=== PATIENT | male | born 1960 | race American Indian/Alaskan Native ===

== ENCOUNTER 2017-03-28 12:31 | Emergency (ER) | payer BC ==
[2017-03-28 12:32] VITALS: BMI 23.8
[2017-03-28 12:42] VITALS: TEMP 97.5
--- NOTE | 2017-03-28 14:31 | C.PDOC ---
History Of Present Illness 57 y/o male otherwise well presented to the ED months after falling off a ladder , c/o pain to left side. Pain to shoulder, radiating into hand, dull, intermittent. pain to hip, radiating down his leg. No head ache, no neck pain. No weakness, no numbness, no slurred speech. Time Seen by Provider: 03/28/17 13:09 Chief Complaint (Nursing): Lower Extremity Problem/Injury Past Medical History Vital Signs: Last Vital Signs Temp 97.5 F L 03/28/17 12:42 Pulse 65 03/28/17 14:43 Resp 16 03/28/17 14:43 BP 123/72 03/28/17 14:43 Pulse Ox 100 03/28/17 14:43 - Medical History PMH: Denies: Depression, Chronic Kidney Disease - [facility] Procedures COLONOSCOPY (09/21/13) INJECT/INFUSE NEC (09/04/13) Family History: States: No Known Family Hx - Social History Hx Tobacco Use: No Hx Alcohol Use: No Hx Substance Use: No - Immunization History Hx Tetanus Toxoid Vaccination: Yes Hx Influenza Vaccination: Yes Hx Pneumococcal Vaccination: No Review Of Systems Constitutional: Negative for: Fever, Chills Cardiovascular: Negative for: Chest Pain, Palpitations Gastrointestinal: Negative for: Nausea, Vomiting, Abdominal Pain Neurological: Negative for: Weakness, Numbness, Confusion, Altered Mental Status , Headache, Dizziness Physical Exam - Physical Exam Appears: Well, Non-toxic Skin: Normal Color, Warm Head: Atraumatic Eye(s): bilateral: Normal Inspection Neck: Supple Extremity: Bilateral: Atraumatic Neurological/Psych: Oriented x3 Extremity: Right: No Drift, Left: No Drift, Upper: No Drift, Lower: No Drift ED Course And Treatment O2 Sat by Pulse Oximetry: 97 Disposition Counseled Patient/Family Regarding: Diagnosis, Need For Followup, Rx Given - Disposition Referrals: [facility] at [facility] [Outside] Disposition: HOME/ ROUTINE Disposition Time: 14:28 Condition: STABLE Prescriptions: diaZEpam [Valium] 5 mg PO TID #12 tab Ibuprofen [Motrin] 600 mg PO TID #15 tab Instructions: RICE Therapy (ED) Forms: [facility] (Kiswahili), General Discharge Instructions - POA Present On Arrival: None - Clinical Impression Clinical Impression: Joint pain
[2017-03-28 14:45] VITALS: BP 123/72; PULSE 65; RESP 16
[2017-04-20 14:27] VITALS: O2SAT 97
== END 2017-03-28 14:44 | disposition home or self-care (01) ==
LOC: C.ER 12:31
DX: M25.512 Pain in left shoulder (principal)

== ENCOUNTER 2017-05-07 04:46 | Emergency (ER) | payer BC ==
[2017-05-07 04:47] VITALS: BMI 23.8
--- NOTE | 2017-05-07 05:05 | C.PDOC ---
History Of Present Illness 57yo male, presents to ED with complaints of left shoulder pain for the past month. Patient states 1 month ago, he fell on his left side and since then he has had pain intermittently. States his pain worsens with movement, specifically when putting his arm above his head. Patient states he has not followed up with his PMD or orthopedist regarding this. Of note, patient states he works in construction. Denies any numbness, weakness, chest pain, or SOB. Patient requesting XR. Time Seen by Provider: 05/07/17 04:57 Chief Complaint (Nursing): Upper Extremity Problem/Injury History Per: Patient History/Exam Limitations: no limitations Onset/Duration Of Symptoms: Persistent Current Symptoms Are (Timing): Still Present Quality: "Pain" Exacerbating Factor(s): Movement Past Medical History Reviewed: Historical Data, Nursing Documentation, Vital Signs Vital Signs: Last Vital Signs Temp 98 F 05/07/17 05:47 Pulse 72 05/07/17 05:47 Resp 18 05/07/17 05:47 BP 123/73 05/07/17 05:47 Pulse Ox 98 05/07/17 05:47 - Medical History PMH: No Chronic Diseases Denies: Depression, Chronic Kidney Disease - [facility] Procedures COLONOSCOPY (09/21/13) INJECT/INFUSE NEC (09/04/13) Family History: States: Unknown Family Hx - Social History Hx Tobacco Use: No Hx Alcohol Use: No Hx Substance Use: No - Immunization History Hx Tetanus Toxoid Vaccination: Yes Hx Influenza Vaccination: Yes Hx Pneumococcal Vaccination: No Review Of Systems Except As Marked, All Systems Reviewed And Found Negative. Musculoskeletal: Positive for: Shoulder Pain (left) Neurological: Negative for: Weakness, Numbness Physical Exam - Physical Exam Appears: Well, Non-toxic, No Acute Distress Skin: Normal Color, Warm Head: Atraumatic, Normacephalic Eye(s): bilateral: Normal Inspection, EOMI Nose: Normal Oral Mucosa: Moist Neck: Normal ROM, Supple Chest: Symmetrical Cardiovascular: Rhythm Regular Respiratory: Normal Breath Sounds, No Accessory Muscle Use Extremity: Normal ROM (FROM with pain aggravated past 120 degrees), Tenderness ( point tenderness to left anterior shoulder), Capillary Refill (<2 sec), No Deformity, No Swelling Pulses: Left Radial: Normal, Right Radial: Normal Neurological/Psych: Oriented x3, Normal Speech, Normal Cognition, Normal Motor, Normal Sensation ED Course And Treatment O2 Sat by Pulse Oximetry: 96 (RA) Pulse Ox Interpretation: Normal - Other Rad Shoulder XR X-Ray: Interpreted by Me, Viewed By Me Interpretation: NAD Progress Note: Patient given Toradol IM. PT instructed to follow up with orthopedist in 1-2 days. Disposition - Disposition Referrals: Taurus Bishop MD [Staff Provider] - Disposition: HOME/ ROUTINE Disposition Time: 05:38 Condition: STABLE Additional Instructions: Follow up with bone doctor in 1-2 days. 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 - Scribe Statement The provider has reviewed the documentation as recorded by the Cory Bernard Provider Attestation: All medical record entries made by the Cory were at my direction and personally dictated by me. I have reviewed the chart and agree that the record accurately reflects my personal performance of the history, physical exam, medical decision making, and the department course for this patient. I have also personally directed, reviewed, and agree with the discharge instructions and disposition.
[2017-05-07 05:49] VITALS: BP 123/73; PULSE 72; RESP 18; TEMP 98
[2017-05-07 05:55] VITALS: O2SAT 96
--- NOTE | 2017-05-07 07:39 | RAD ---
Left shoulder three views History: Pain. Comparison: None available. Findings: Moderate narrowing of the left glenohumeral joint space. Mild narrowing of the left acromioclavicular joint space. No evidence for acute displaced fracture or dislocation. Subchondral cyst formation within the proximal humerus. Impression: Degenerative changes. If pain persists, consider MRI
== END 2017-05-07 05:51 | disposition home or self-care (01) ==
LOC: C.ER 04:46
DX: M25.512 Pain in left shoulder (principal)
CPT/HCPCS: 73030; 96372; 99284; J1885

== ENCOUNTER 2017-05-22 17:26 | Emergency (ER) | payer BC ==
[2017-05-22 17:26] VITALS: BMI 23.8
[2017-05-22 17:41] VITALS: BP 116/79; PULSE 68; RESP 18; TEMP 98.7; O2SAT 99
[2017-05-22] MEDS ORDERED: Apap-Butalbital-Caffeine 325-50-40mg Tab PO STA (17:55)
[2017-05-22] MEDS ORDERED: Apap-Butalbital-Caffeine 325-50-40mg Tab ONE (18:04)
--- NOTE | 2017-05-22 18:19 | C.PDOC ---
History Of Present Illness 57 year old male presents to the ER with a complaint of an intermittent, throbbing, right sided headache for the past 2 days, associated with photophobia. Patient states the pain feels like a migraine and has had similar headaches in the past. He took 600mg of ibuprofen with mild relief but headache recurs. Denies vision change, nausea, vomiting, dizziness, weakness, or numbness. Time Seen by Provider: 05/22/17 17:49 Chief Complaint (Nursing): Headache History Per: Patient History/Exam Limitations: no limitations Onset/Duration Of Symptoms: Days Current Symptoms Are (Timing): Still Present Preceeding Symptoms: None Associated Symptoms: Photophobia. denies: Blurred Vision, Nausea, Vomiting, Extremity Weakness Recent travel outside of the [place]: No Past Medical History Reviewed: Historical Data, Nursing Documentation, Vital Signs Vital Signs: Last Vital Signs Temp 98.7 F 05/22/17 17:39 Pulse 68 05/22/17 17:39 Resp 18 05/22/17 17:39 BP 116/79 05/22/17 17:39 Pulse Ox 99 05/22/17 18:19 - Medical History PMH: No Chronic Diseases - [facility] Procedures COLONOSCOPY (09/21/13) INJECT/INFUSE NEC (09/04/13) Family History: States: Unknown Family Hx - Social History Hx Tobacco Use: No Hx Alcohol Use: No Hx Substance Use: No - Immunization History Hx Tetanus Toxoid Vaccination: Yes Hx Influenza Vaccination: Yes Hx Pneumococcal Vaccination: No Review Of Systems Constitutional: Negative for: Fever, Chills Eyes: Negative for: Vision Change Gastrointestinal: Negative for: Nausea, Vomiting Neurological: Positive for: Headache, Other (Photophobia). Negative for: Dizziness Physical Exam - Physical Exam Appears: Non-toxic, No Acute Distress Skin: Normal Color, Warm, Dry Head: Atraumatic, Normacephalic Eye(s): bilateral: Normal Inspection (No nystagmus), PERRL, EOMI Ear(s): Bilateral: Normal Oral Mucosa: Moist Throat: Normal, No Erythema, No Exudate Neck: Normal, Supple Chest: Symmetrical, No Tenderness Cardiovascular: Rhythm Regular Respiratory: Normal Breath Sounds, No Rales, No Rhonchi, No Wheezing Gastrointestinal/Abdominal: Soft, No Tenderness Extremity: Normal ROM (x4) Neurological/Psych: Oriented x3, Normal Speech, Normal Cranial Nerves ED Course And Treatment O2 Sat by Pulse Oximetry: 99 (room air) Pulse Ox Interpretation: Normal Medical Decision Making Medical Decision Making: Impression: Headache Plan: Fioricet Re-Eval: On reevaluation patient reports feeling better, headache has much improved. He has no fever and stable vital signs. No nuchal rigidity or neuro deficits. Patient stable for discharge. Rx given. Patient given follow up instructions. Instructed to return to ER if symptoms worsen or new symptoms arise. Disposition Counseled Patient/Family Regarding: Diagnosis, Need For Followup, Rx Given - Disposition Referrals: Clayton Garcia MD [Staff Provider] - Disposition: HOME/ ROUTINE Disposition Time: 18:17 Condition: STABLE Additional Instructions: Follow up with your primary medical doctor or clinic in 2-5 days for further evaluation. Take medications as prescribed. Return to the emergency department at any time if symptoms persist or worsen. 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 - Scribe Statement The provider has reviewed the documentation as recorded by the Scribe Len Rice All medical record entries made by the Miladyibe were at my direction and personally dictated by me. I have reviewed the chart and agree that the record accurately reflects my personal performance of the history, physical exam, medical decision making, and the department course for this patient. I have also personally directed, reviewed, and agree with the discharge instructions and disposition.
== END 2017-05-22 18:35 | disposition home or self-care (01) ==
LOC: C.ER 17:26
DX: G43.909 Migraine, unspecified, not intractable, without status migrainosus (principal)

== ENCOUNTER 2017-05-27 20:45 | Emergency (ER) | payer BC ==
[2017-05-27 20:45] VITALS: BMI 23.8
[2017-05-27 21:26] VITALS: RESP 16; TEMP 97.7; O2SAT 98
--- NOTE | 2017-05-27 21:49 | C.PDOC ---
History Of Present Illness 57 y/o male with no significant PMHX c/o of dry cough and chest congestion x 3 days. Took OTC dayquil with no relief. pt denies fever, CP, SOB or sick contact Time Seen by Provider: 05/27/17 21:30 Chief Complaint (Nursing): Cough, Cold, Congestion History Per: Patient History/Exam Limitations: no limitations Current Symptoms Are (Timing): Still Present Associated Symptoms: Cough. denies: Fever, Sore Throat, Sputum, Sinus Drainage , Nasal Congestion, Vomiting Severity: Moderate Recent travel outside of the [place]: No Past Medical History Vital Signs: Last Vital Signs Temp 97.7 F 05/27/17 21:23 Pulse 83 05/27/17 21:23 Resp 16 05/27/17 21:23 BP 108/72 05/27/17 21:23 Pulse Ox 98 05/27/17 21:23 - Medical History PMH: Denies: Depression, Chronic Kidney Disease - [facility] Procedures COLONOSCOPY (09/21/13) INJECT/INFUSE NEC (09/04/13) Family History: States: Unknown Family Hx - Social History Hx Tobacco Use: No Hx Alcohol Use: No Hx Substance Use: No - Immunization History Hx Tetanus Toxoid Vaccination: Yes Hx Influenza Vaccination: Yes Hx Pneumococcal Vaccination: No Review Of Systems Constitutional: Negative for: Fever, Chills Eyes: Positive for: Pain Cardiovascular: Negative for: Chest Pain, Palpitations Respiratory: Positive for: Cough. Negative for: Shortness of Breath, Pleuritic Pain, Wheezing Physical Exam - Physical Exam Appears: Well, Non-toxic, No Acute Distress Skin: Normal Color Eye(s): bilateral: Normal Inspection, PERRL Throat: Normal Chest: Symmetrical, No Tenderness Cardiovascular: Rhythm Regular Respiratory: Normal Breath Sounds, No Accessory Muscle Use, No Stridor, No Wheezing Neurological/Psych: Oriented x3 ED Course And Treatment O2 Sat by Pulse Oximetry: 98 Pulse Ox Interpretation: Normal Progress Note: Pt in no acute resp distress, appears well, stable. Pt will follow up with PMD Disposition Counseled Patient/Family Regarding: Diagnosis, Need For Followup, Rx Given - Disposition Referrals: [facility] at [facility] [Outside] Disposition: HOME/ ROUTINE Disposition Time: 21:47 Condition: STABLE Additional Instructions: Please follow up with PMD/ in clinic Take meds as directed Return to ER if worse Prescriptions: Benzonatate [Tessalon Perles] 100 mg PO TID #20 sgl Cetirizine HCl [Zyrtec] 10 mg PO DAILY #20 capsule Ibuprofen [Motrin] 600 mg PO Q6H #20 tab Instructions: Upper Respiratory Infection (ED) - Clinical Impression Clinical Impression: Upper respiratory infection
[2017-05-27 22:03] VITALS: BP 110/68; PULSE 70
== END 2017-05-27 22:03 | disposition home or self-care (01) ==
LOC: C.ER 20:45
DX: J06.9 Acute upper respiratory infection, unspecified (principal)

== ENCOUNTER 2017-06-22 10:26 | Emergency (ER) | payer OTHER, BC ==
[2017-06-22 10:38] VITALS: BMI 23.6
[2017-06-22 10:39] VITALS: RESP 16; O2SAT 98
[2017-06-22] MEDS ORDERED: Lidocaine 5% Patch TD STA (11:56)
--- NOTE | 2017-06-22 11:56 | C.PDOC ---
History Of Present Illness 57 year old male presents to ED with complaint of left lower back pain which radiates down the leg for 4 days. Patient states it started when lifting a heavy trash bag outdoors. He states he took Tylenol and Flexeril without relief. Patient has history of similar back pain in the past. Denies any numbness, weakness, abdominal pain, urinary or bowel incontinence. Time Seen by Provider: 06/22/17 11:50 Chief Complaint (Nursing): Back Pain History Per: Patient History/Exam Limitations: no limitations Current Symptoms Are (Timing): Still Present Severity: Moderate Past Medical History Reviewed: Historical Data, Nursing Documentation, Vital Signs Vital Signs: Last Vital Signs Temp 98.1 F 06/22/17 13:33 Pulse 60 06/22/17 13:33 Resp 16 06/22/17 13:33 BP 118/77 06/22/17 13:33 Pulse Ox 98 06/22/17 13:33 - Medical History PMH: No Chronic Diseases - [facility] Procedures COLONOSCOPY (09/21/13) INJECT/INFUSE NEC (09/04/13) Family History: States: No Known Family Hx - Social History Hx Tobacco Use: No Hx Alcohol Use: No Hx Substance Use: No - Immunization History Hx Tetanus Toxoid Vaccination: Yes Hx Influenza Vaccination: No Hx Pneumococcal Vaccination: No Review Of Systems Constitutional: Negative for: Fever, Weakness Cardiovascular: Negative for: Palpitations Respiratory: Negative for: Shortness of Breath Gastrointestinal: Negative for: Abdominal Pain Genitourinary: Negative for: Dysuria, Incontinence Musculoskeletal: Positive for: Back Pain (left lower back pain) Skin: Negative for: Rash Neurological: Negative for: Weakness, Numbness, Headache, Dizziness Physical Exam - Physical Exam Appears: Non-toxic, No Acute Distress Skin: Normal Color, Warm, Dry, No Rash Head: Atraumatic, Normacephalic Eye(s): bilateral: Normal Inspection Nose: Normal Oral Mucosa: Moist Neck: Supple Chest: Symmetrical Cardiovascular: Rhythm Regular, No Murmur Respiratory: Normal Breath Sounds, No Accessory Muscle Use, No Rales, No Rhonchi , No Wheezing Gastrointestinal/Abdominal: Normal Exam, Soft, No Tenderness Back: Normal Inspection, No CVA Tenderness, No Vertebral Tenderness, No Muscle Spasm, Paraspinal Tenderness (paralumbar tenderness), Other (no erythema, no ecchymosis, no bulging) Extremity: Bilateral: Atraumatic, Normal Color And Temperature, Normal ROM Neurological/Psych: Oriented x3, Normal Speech Gait: Steady ED Course And Treatment O2 Sat by Pulse Oximetry: 98 (RA) Pulse Ox Interpretation: Normal Medical Decision Making Medical Decision Making: Impression: Back pain, sciatica Based on history and exam, xray is not clinically indicated. [facility] reviewed: 05/10/2017 TRAMADOL HCL 50 MG TABLET 15.0 03/28/2017 DIAZEPAM 5 MG TABLET 12.0 Plan: * Tylenol * Motrin * Lidoderm patch * Valium Re-Eval: 1315 Patient now reports pain is improving. He has no vertebral tenderness, no fever, no numbness. He is ambulatory without signs of discomfort. Pain is likely from sciatica. Patient is stable for discharge. Recommend analgesics, rx given. Advise follow up with Dr Garcia in one week or pain management if the pain is persistent. Disposition Counseled Patient/Family Regarding: Need For Followup, Rx Given - Disposition Referrals: Clayton Garcia MD [Staff Provider] - Disposition: HOME/ ROUTINE Disposition Time: 13:16 Condition: GOOD Additional Instructions: You can apply heat to the area of pain Take Motrin every 6-8 hours for pain Take Valium for pain as needed every 8 hours or at night, can cause drowsiness Follow up with your primary medical doctor or clinic in 2-5 days for further evaluation. Return to the emergency department at any time if symptoms persist or worsen. 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 - Scribe Statement The provider has reviewed the documentation as recorded by the Cory Quiros Provider Attestation All medical record entries made by the Miladyibbrandon were at my direction and personally dictated by me. I have reviewed the chart and agree that the record accurately reflects my personal performance of the history, physical exam, medical decision making, and the department course for this patient. I have also personally directed, reviewed, and agree with the discharge instructions and disposition.
[2017-06-22] MEDS ORDERED: Lidocaine 5% Patch TD ONE (12:28)
[2017-06-22 13:34] VITALS: BP 118/77; PULSE 60; TEMP 98.1
== END 2017-06-22 13:34 | disposition home or self-care (01) ==
LOC: C.ER 10:26
DX: M54.30 Sciatica, unspecified side (principal)

== ENCOUNTER 2017-08-20 11:59 | Emergency (ER) | payer BC, OTHER ==
[2017-08-20 12:00] VITALS: BMI 23.6
[2017-08-20 12:07] VITALS: BP 121/81; PULSE 65; RESP 18; TEMP 98.5; O2SAT 98
--- NOTE | 2017-08-20 12:29 | C.PDOC ---
History Of Present Illness 57 year old male presents to the emergency room with complaints of an abnormal growth in his anal area. Patient reports that the growth has continued over the last two years, and he feels occasional pain when wiping himself. Patient reports that he drinks sometimes, but denies tobacco use, fever, and any other medical problems/diseases. 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 Time Seen by Provider: 08/20/17 12:15 Chief Complaint (Nursing): Abnormal Skin Integrity History Per: Patient History/Exam Limitations: no limitations Onset/Duration Of Symptoms: Days (2 years) Current Symptoms Are (Timing): Still Present Quality Of Symptoms: Painful (described as occasional. ). denies: Draining Past Medical History Reviewed: Historical Data, Nursing Documentation, Vital Signs Vital Signs: Last Vital Signs Temp 98.5 F 08/20/17 12:05 Pulse 65 08/20/17 12:05 Resp 18 08/20/17 12:05 BP 121/81 08/20/17 12:05 Pulse Ox 98 08/20/17 12:40 - Medical History PMH: No Chronic Diseases Denies: Depression, Chronic Kidney Disease Surgical History: No Surg Hx - [facility] Procedures COLONOSCOPY (09/21/13) INJECT/INFUSE NEC (09/04/13) Family History: States: No Known Family Hx - Social History Hx Tobacco Use: No Hx Alcohol Use: Yes Hx Substance Use: No - Immunization History Hx Tetanus Toxoid Vaccination: Yes Hx Influenza Vaccination: No Hx Pneumococcal Vaccination: No Review Of Systems Except As Marked, All Systems Reviewed And Found Negative. Constitutional: Negative for: Fever Gastrointestinal: Positive for: Other (abnormal growth in anal area. ) Physical Exam - Physical Exam Appears: Well, Non-toxic Skin: Normal Color Head: Atraumatic, Normacephalic Eye(s): bilateral: Normal Inspection Ear(s): Bilateral: Normal Nose: Normal Oral Mucosa: Moist Tongue: Normal Appearing Neck: Normal, Supple Cardiovascular: Rhythm Regular Respiratory: Normal Breath Sounds Rectal: Hemorrhoids (small external hemorrhoid visualized, not thrombose.) Neurological/Psych: Oriented x3, Normal Speech, Normal Cognition ED Course And Treatment O2 Sat by Pulse Oximetry: 98 (RA) Pulse Ox Interpretation: Normal Medical Decision Making Medical Decision Making: Patient is clear for discharge home with instructions to follow up with primary care physician Dr. Islas in a few weeks. Disposition - Disposition Disposition: HOME/ ROUTINE Disposition Time: 12:34 Condition: FAIR Additional Instructions: Mr. Garzon, thank you for letting us take care of you today. Return to the ER if your symptoms worsen, or if any problems. Drink plenty of water. Sit in a hot bath tube for approximately 15 minutes two or three times a day to help shrink the hemorrhoids. Take the medicine listed below as prescribed. Eat plenty of vegetables. Do not sit on the toilet too long when having a bowel movement. Follow up with Dr. Islas in 2-3 days for a re-evaluation. Prescriptions: Docusate [Colace] 1 tab PO TID #90 cap Hydrocortisone Acetate 30 mg RC BID #14 supp.rect Instructions: Hemorrhoids (DC) Forms: [facility] (Icelandic), General Discharge Instructions Print Language: MAURITANIAN - POA Present On Arrival: None - Clinical Impression Clinical Impression: Hemorrhoids - Scribe Statement The provider has reviewed the documentation as recorded by the Scribe (Bismark Thomas) Provider Attestation: All medical record entries made by the Scribe were at my direction and personally dictated by me. I have reviewed the chart and agree that the record accurately reflects my personal performance of the history, physical exam, medical decision making, and the department course for this patient. I have also personally directed, reviewed, and agree with the discharge instructions and disposition.
== END 2017-08-20 12:44 | disposition home or self-care (01) ==
LOC: C.ER 11:59
DX: K64.9 Unspecified hemorrhoids (principal)

== ENCOUNTER 2017-11-28 11:38 | Emergency (ER) | payer BC ==
[2017-11-28 11:39] VITALS: BMI 23.6
[2017-11-28 11:58] VITALS: O2SAT 97
[2017-11-28] MEDS ORDERED: Lidocaine 5% Patch TD STA (12:57)
[2017-11-28] MEDS ORDERED: Naproxen 550 mg Tab PO STA (12:57)
[2017-11-28] MEDS ORDERED: Lidocaine 5% Patch TD ONE (13:04)
[2017-11-28] MEDS ORDERED: Naproxen 550 mg Tab PO ONE (13:04)
--- NOTE | 2017-11-28 13:21 | C.PDOC ---
History Of Present Illness 57 y/o male presents to the ED complaining of left lower back pain, radiating down the left leg for 2 days. Patient states he was doing housework and felt a sharp pain after bending over 2 days ago. No fall or trauma. Admits that he frequently does heavy lifting. Reports having a similar episode of back pain 6 months ago. Pain worsens with movement and walking. Patient otherwise denies any numbness, tingling, focal weakness, abdominal pain, nausea, vomiting, dysuria, or incontinence. Time Seen by Provider: 11/28/17 12:33 Chief Complaint (Nursing): Back Pain History Per: Patient History/Exam Limitations: no limitations Onset/Duration Of Symptoms: Days Current Symptoms Are (Timing): Still Present Past Medical History Reviewed: Historical Data, Nursing Documentation, Vital Signs Vital Signs: Last Vital Signs Temp 97.9 F 11/28/17 11:54 Pulse 73 11/28/17 11:54 Resp 20 11/28/17 11:54 BP 111/78 11/28/17 11:54 Pulse Ox 97 11/28/17 14:14 - Medical History PMH: Denies: Depression, Chronic Kidney Disease Other Surgeries: Eye surgery - [facility] COLONOSCOPY (09/21/13) INJECT/INFUSE NEC (09/04/13) Family History: States: Unknown Family Hx - Social History Hx Tobacco Use: No Hx Alcohol Use: Yes Hx Substance Use: No - Immunization History Hx Tetanus Toxoid Vaccination: Yes Hx Influenza Vaccination: No Hx Pneumococcal Vaccination: No Review Of Systems Except As Marked, All Systems Reviewed And Found Negative. Constitutional: Negative for: Fever Gastrointestinal: Negative for: Nausea, Vomiting, Abdominal Pain Genitourinary: Negative for: Dysuria, Frequency, Incontinence Musculoskeletal: Positive for: Back Pain Neurological: Negative for: Weakness, Numbness Physical Exam - Physical Exam Appears: Non-toxic, No Acute Distress Skin: Normal Color, Warm, Dry, No Rash Head: Atraumatic, Normacephalic Eye(s): bilateral: Normal Inspection Oral Mucosa: Moist Neck: Normal ROM, Supple Chest: Symmetrical Gastrointestinal/Abdominal: Soft, No Tenderness, No Distention Back: No Vertebral Tenderness, Paraspinal Tenderness (left paralumbar tenderness ), No Straight Leg Raising Extremity: Normal ROM, No Tenderness, No Swelling Extremity: Bilateral: Atraumatic, Normal Color And Temperature, Normal ROM Pulses: Left Dorsalis Pedis: Normal, Right Dorsalis Pedis: Normal Neurological/Psych: Oriented x3, Normal Speech, Normal Motor, Normal Sensation, Other (No focal deficits) Gait: Steady ED Course And Treatment O2 Sat by Pulse Oximetry: 97 (RA) Pulse Ox Interpretation: Normal Medical Decision Making Medical Decision Making: Old records reviewed, the patient was last seen in the ED for back pain on 06/22, was given Rx for back pain and was discharged home. Plan: --Naproxen 550 mg PO --Lidoderm patch --Prednisone 60 mg PO --Flexeril 10 mg PO --X-ray LS spine LS spine xrays show no fracture or dislocations, (+) degenerative changes. Results were discussed with the patient. On re-exam, the patient reports improvement of symptoms. Lungs are CTA, heart is RRR, abdomen is soft, non- tender and tolerating PO well. Pt is ambulatory in the ED with steady gait. Follow up with the medical doctor/clinic within 1-2 days without fail. Return if worsened. Disposition - Disposition Referrals: Sergo Grissom MD [Non-Staff] - Disposition: HOME/ ROUTINE Disposition Time: 14:11 Condition: IMPROVED Additional Instructions: Follow up with the medical doctor/clinic within 1-2 days without fail. Return if worsened. 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 - Scribe Statement The provider has reviewed the documentation as recorded by the Scribe (Yesenia Cole) All medical record entries made by the Scribe were at my direction and personally dictated by me. I have reviewed the chart and agree that the record accurately reflects my personal performance of the history, physical exam, medical decision making, and the department course for this patient. I have also personally directed, reviewed, and agree with the discharge instructions and disposition.
--- NOTE | 2017-11-28 14:08 | RAD ---
PROCEDURE: Radiographs of the Lumbar Spine. HISTORY: low back pain COMPARISON: No prior. FINDINGS: BONES: Normal alignment. No listhesis. No fracture. Mild multilevel endplate changes. DISC SPACES: Unremarkable. OTHER FINDINGS: None. IMPRESSION: No acute fracture. Mild multilevel degenerative changes.
[2017-11-28 14:42] VITALS: BP 112/77; PULSE 62; RESP 18; TEMP 98.1
== END 2017-11-28 14:40 | disposition home or self-care (01) ==
LOC: C.ER 11:38
DX: S39.012A Strain of muscle, fascia and tendon of lower back, initial encounter (principal); X50.0XXA Overexertion from strenuous movement or load, initial encounter; Y93.E5 Activity, floor mopping and cleaning; Y92.009 Unspecified place in unspecified non-institutional (private) residence as the place of occurrence of the external cause